=== PATIENT | male | born 1975 | race African-American/Black ===

== ENCOUNTER 2018-07-20 14:21 | Emergency (ER) | payer MEDICAID ==
[~2018-07-20] VITALS: Ht 188 cm; Wt 102.0 kg
[2018-07-20] MEDS ORDERED: ONDANSETRON HCL 4MG/2ML INJ IV ONE (14:45)
[2018-07-20] MEDS ORDERED: FENTANYL CITRATE/PF 50MCG/ML 2ML VIAL IV ONE (14:45)
[2018-07-20] MEDS ORDERED: SODIUM CHLORIDE 0.9% 1,000 ML IV ONE (15:45)
[2018-07-20] MEDS ORDERED: ETOMIDATE 2MG/ML 10ML VIAL IV ONE (16:00)
[2018-07-20] MEDS ORDERED: OXYCODONE HCL/ACETAMINOPHEN 5/325MG TABLET PO ONE (18:30)
[2018-07-20 19:26] VITALS: BP 125/83
== END 2018-07-20 19:45 | disposition home or self-care (01) ==
LOC: ER 14:21
DX: S82.892A Other fracture of left lower leg, initial encounter for closed fracture (principal); S59.802A Other specified injuries of left elbow, initial encounter; W50.2XXA Accidental twist by another person, initial encounter; Y93.89 Activity, other specified; Y92.89 Other specified places as the place of occurrence of the external cause; Y99.8 Other external cause status
CPT/HCPCS: 27810; 71045; 73080; 73562; 73590; 73610; 73630; 96374; 96375; 99152; 99285; J2405; J3010; J3490; J7030